=== PATIENT | female | born 1945 | race Two or more races ===

== ENCOUNTER 2017-04-29 12:39 | Inpatient (IN) | payer OTHER ==
[~2017-04-29] VITALS: Ht 162.6 cm; Wt 59.0 kg
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
[2017-04-29 14:36] VITALS: BP 121/57
[2017-04-29] MEDS ORDERED: METH5TAB70 PO (15:46)
[2017-04-29] MEDS ORDERED: ASPI-605 PO (15:46)
[2017-04-29] MEDS ORDERED: AMLO5TAB4 PO (15:46)
[2017-04-29] MEDS ORDERED: CARV6.25 PO (15:46)
[2017-04-29] MEDS ORDERED: DOCU-170 PO (15:46)
[2017-04-29] MEDS ORDERED: LISI-607 PO (15:46)
[2017-04-29] MEDS ORDERED: MAGN400O4 PO (15:46)
[2017-04-29] MEDS ORDERED: HYDR-552 PO (15:46)
[2017-04-29] MEDS ORDERED: NITR0.4T SL (15:46)
[2017-04-29] MEDS ORDERED: ACET650T10 PO (15:46)
[2017-04-29 16:00] VITALS: BP 126/76
[2017-04-29] MEDS ORDERED: MAG HYDROX/AL HYDROX/SIMETH 30 ML UDC PO PRN (16:00)
[2017-04-29] MEDS ORDERED: DEXTROSE 50%-WATER 50 ML DISP.SYRIN IV PRN (16:00)
[2017-04-29] MEDS ORDERED: Z GUARD REMEDY 2 OZ OINT TP PRN (16:00)
[2017-04-29] MEDS ORDERED: ZOLPIDEM TARTRATE 5 MG TABLET PO PRN (16:00)
[2017-04-29] MEDS ORDERED: NITROGLYCERIN 0.4 MG/TAB BOTTLE SL PRN (16:00)
[2017-04-29] MEDS ORDERED: INSULIN REGULAR, HUMAN 100 UNIT/ML 3 ML VIAL SQ PRN (16:00)
[2017-04-29] MEDS ORDERED: ACETAMINOPHEN 325 MG TABLET PO PRN (16:00)
[2017-04-29] MEDS ORDERED: HYDROCODONE/APAP 5/325MG 1 EACH TABLET PO PRN (16:00)
[2017-04-29] MEDS ORDERED: *INSULIN REGULAR(HUMULIN R)HUM 100 UNIT/ML VIAL SQ PRN (16:00)
[2017-04-29] MEDS ORDERED: ONDANSETRON HCL/PF 4 MG/2 ML VIAL IVP PRN (16:00)
[2017-04-29] MEDS ORDERED: MAGNESIUM HYDROXIDE 30 ML UDC PO PRN ×2 (16:00)
[2017-04-29] MEDS: IV NS 0.9% 1,000 ML IV PRN (16:19)
[2017-04-29] MEDS: LISINOPRIL (5MG) 5 MG TABLET PO SCH (16:29)
[2017-04-29] MEDS: DOCUSATE SODIUM 100 MG CAPSULE PO SCH (16:29)
[2017-04-29] MEDS: METHIMAZOLE (5MG) 5 MG TABLET PO SCH (16:29)
[2017-04-29] MEDS ORDERED: POLYVINYL ALCOHOL 15 ML BOTTLE EACHEYE PRN (16:30)
[2017-04-29] MEDS: ENOXAPARIN SODIUM 30 MG/0.3 ML DISP.SYRIN SQ SCH (16:30)
[2017-04-29] MEDS ORDERED: MENTHOL/CETYLPYRD (CEPACOL) 1 LOZ LOZENGE PO PRN (16:30)
[2017-04-29] MEDS ORDERED: BLOOD SUGAR DIAGNOSTIC 1 EACH STRIP IN SCH (17:30)
[2017-04-29] MEDS ORDERED: HYDROCODONE/APAP 5/325MG 1 EACH TABLET PO SCH (18:00)
--- NOTE | 2017-04-29 18:45 | NUR ---
MS/RN - Notes Pt fed dinner, and ate 100%. No significant change in pt's condition. No acute distress.
[2017-04-29 20:00] VITALS: BP 147/60
[2017-04-29] MEDS: CARVEDILOL 3.125 MG TABLET PO SCH (21:00)
[2017-04-29] MEDS: SIMVASTATIN 20 MG TABLET PO SCH (21:23)
--- NOTE | 2017-04-29 21:24 | NUR ---
MS-1/STONE SAWYER PT UNWILLING TO TAKE PO MEDS AT THIS TIME.
[2017-04-30 04:00] VITALS: BP_SYST 147; BP_DIAS 43; BP_DIAS 73
[2017-04-30] MEDS: IV NS 0.9% 1,000 ML IV PRN ×2 (04:06→21:01)
--- NOTE | 2017-04-30 06:46 | NUR ---
MS-1/CLIENT REPORTING ASSOCIATE PT REFUSING BLOOD DRAW AT THIS TIME. WILL ENDORSE TO AM SHIFT.
[2017-04-30 08:00] VITALS: BP 150/83
[2017-04-30] MEDS ORDERED: DOCUSATE SODIUM 100 MG CAPSULE PO SCH (09:00)
[2017-04-30] MEDS: PANTOPRAZOLE 40 MG VIAL IV SCH (09:06)
[2017-04-30] MEDS: METHIMAZOLE (5MG) 5 MG TABLET PO SCH ×2 (09:07→16:53)
[2017-04-30] MEDS: ASPIRIN 81 MG TAB.CHEW PO SCH (09:07)
[2017-04-30] MEDS: LISINOPRIL (5MG) 5 MG TABLET PO SCH ×2 (09:07→16:53)
[2017-04-30] MEDS: DOCUSATE SODIUM 100 MG CAPSULE PO SCH ×2 (09:07→16:53)
[2017-04-30] MEDS: CARVEDILOL 3.125 MG TABLET PO SCH ×2 (09:08→21:00)
[2017-04-30] MEDS: AMLODIPINE BESYLATE 5 MG TABLET PO SCH (09:15)
--- NOTE | 2017-04-30 10:04 | NUR ---
WOUND CARE CONSULT: PT PRESENTS WITH DRY ESCHAR TO RT GREAT TOE AND INTACT DEEP TISSUE INJURY (BROWN) TO RT HEEL, PRESENT ON ADMISSION. RT LOWER EXTREMITY SEVERELY CONTRACTED, MAKING OFFLOADING DIFFICULT. SCARRING NOTED TO RT LATERAL FOOT AND SACRAL AREAS. PT ON ISOFLEX LOW AIRLOSS BED. ALL SKIN PROTECTION MEASURES IN PLACE AND DISCUSSED WITH NURSING STAFF. WILL SEE PRN. Silvia Summers IN AGREEMENT WITH PLAN OF CARE. Addendum: 04/30/17 at 1007 by HIEN GUNDERSON WNDNU Amended: Links added.
[2017-04-30 12:03] LABS: ALBUMIN 2.9 g/dL (3.4-5.0); BASOPHILS % (AUTO) 0.2 % (0.0-2.0); BILIRUBIN,DIRECT 0.1 mg/dL (0.0-0.2); BILIRUBIN,TOTAL 0.3 mg/dL (0.2-1.0); EOSINOPHILS # (AUTO) 0.1 /CMM (0.0-0.7); EOSINOPHILS % (AUTO) 1.2 % (0.0-6.0); HEMATOCRIT 39 % (33-45); HEMOGLOBIN 12.7 g/dL (11.5-14.8); LYMPHOCYTES # (AUTO) 1.5 /CMM (0.8-4.8); LYMPHOCYTES % (AUTO) 12.5 % (20.0-44.0); MAGNESIUM 1.7 mg/dL (1.8-2.4); MEAN CORPUSCULAR HEMOGLOBIN 25 PG (26.0-33.0); MEAN CORPUSCULAR HGB CONC 32 g/dl (31.0-36.0); MEAN CORPUSCULAR VOLUME 76 fL (82-100); MONOCYTES # (AUTO) 0.8 /CMM (0.1-1.30); MONOCYTES % (AUTO) 6.7 % (2.0-12.0); NEUTROPHILS # (AUTO) 9.8 /CMM (1.8-8.9); NEUTROPHILS % (AUTO) 79.4 % (43.0-81.0); PHOSPHORUS 2.7 mg/dL (2.5-4.9); PLATELET COUNT (AUTO) 318 /CMM (150-450); RDW COEFFICIENT OF VARIATION 13.7 (11.5-15.0); RED BLOOD CELL COUNT(AUTO) 5.13 MIL/uL (4.0-5.2); TOTAL PROTEIN, SERUM 7.2 g/dL (6.4-8.2); WHITE BLOOD COUNT (AUTO) 12.4 K/uL (4.3-11.0)
[2017-04-30 12:11] LABS: INR 0.98 (0.87-1.13); PROTHROMBIN TIME 10.2 SECS (9.5-12.7)
[2017-04-30 12:14] LABS: CREATINE KINASE MB 6.1 ng/mL (0-3.6); RETICULOCYTE COUNT 0.9 % (0.6-2.5); THYROID STIMULATING HORMONE 0.008 uIU/mL (0.358-3.74)
[2017-04-30] MEDS: Magnesium 1GM/D5W 100ML PREMIX 100 ML IV SCH ×2 (15:39→16:53)
[2017-04-30 16:00] VITALS: BP 140/63
[2017-04-30] MEDS: ENOXAPARIN SODIUM 30 MG/0.3 ML DISP.SYRIN SQ SCH (16:54)
[2017-04-30 17:57] LABS: APPEARANCE,URINE SL CLOUDY (CLEAR); BILIRUBIN,URINE NEGATIVE (NEGATIVE); BLOOD, URINE 2+ Ery/uL (NEGATIVE); COLOR,URINE YELLOW (YELLOW); KETONES,URINE NEGATIVE (NEGATIVE); LEUKOCYTE ESTERASE ,URINE 3+ (NEGATIVE); NITRITE, URINE NEGATIVE (NEGATIVE); PROTEIN,URINE NEGATIVE (NEGATIVE); UGLUCOSE NEGATIVE (NEGATIVE); UROBILINOGEN,URINE 0.2 EU/dL (0.2)
[2017-04-30 18:16] LABS: BACTERIA,URINE Many /HPF (None Seen); SQUAMOUS EPITHELIAL CELL,UR Few /HPF (None Seen); WBC,URINE TOO NUMEROUS TO COUN /HPF (0-3)
[2017-04-30] MEDS: SIMVASTATIN 20 MG TABLET PO SCH (21:05)
[2017-05-01 04:00] VITALS: BP 113/58
--- NOTE | 2017-05-01 07:18 | NUR ---
RN INITIAL NOTES: REC'D PT AWAKE ON BED, NOT IN ANY DISTRESS, NON VERBAL. ON ROOM AIR, NO SOB NOTED. HAS RFA G22 PL PATENT & INTACT W/ NO S/SX OF INFECTION/INFILTRATION NOTED W/ NS 75 CC/HR INFUSING WELL. PROVIDED COMFORT & SAFETY MEASURES. BED KEPT LOW & IN LOCKED POS. CALL LIGHT PLACED W/IN REACH. WILL CONTINUE TO MONITOR & ATTEND PT NEEDS.
[2017-05-01 08:00] VITALS: BP 121/54
[2017-05-01] MEDS: PANTOPRAZOLE 40 MG VIAL IV SCH (09:36)
[2017-05-01] MEDS: AMLODIPINE BESYLATE 5 MG TABLET PO SCH (09:36)
[2017-05-01] MEDS: DOCUSATE SODIUM 100 MG CAPSULE PO SCH ×2 (09:36→17:40)
[2017-05-01] MEDS: ASPIRIN 81 MG TAB.CHEW PO SCH (09:37)
[2017-05-01] MEDS: CARVEDILOL 3.125 MG TABLET PO SCH ×2 (09:37→22:22)
[2017-05-01] MEDS: METHIMAZOLE (5MG) 5 MG TABLET PO SCH ×2 (09:37→17:40)
[2017-05-01] MEDS: LISINOPRIL (5MG) 5 MG TABLET PO SCH ×2 (09:37→17:00)
[2017-05-01 11:09] LABS: BASOPHILS # (AUTO) 0.1 /CMM (0.0-0.2); BASOPHILS % (AUTO) 0.8 % (0.0-2.0); EOSINOPHILS # (AUTO) 0.6 /CMM (0.0-0.7); EOSINOPHILS % (AUTO) 5.6 % (0.0-6.0); HEMATOCRIT 38 % (33-45); HEMOGLOBIN 12.3 g/dL (11.5-14.8); LYMPHOCYTES # (AUTO) 3.8 /CMM (0.8-4.8); LYMPHOCYTES % (AUTO) 37.9 % (20.0-44.0); MEAN CORPUSCULAR HEMOGLOBIN 25 PG (26.0-33.0); MEAN CORPUSCULAR HGB CONC 32 g/dl (31.0-36.0); MEAN CORPUSCULAR VOLUME 77 fL (82-100); MONOCYTES # (AUTO) 0.8 /CMM (0.1-1.30); MONOCYTES % (AUTO) 8.4 % (2.0-12.0); NEUTROPHILS # (AUTO) 4.7 /CMM (1.8-8.9); NEUTROPHILS % (AUTO) 47.3 % (43.0-81.0); PLATELET COUNT (AUTO) 296 /CMM (150-450); RED BLOOD CELL COUNT(AUTO) 4.99 MIL/uL (4.0-5.2)
[2017-05-01 11:34] LABS: CALCIUM, SERUM 9.1 mg/dL (8.5-10.1); CARBON DIOXIDE 25 mmol/L (21-32); CHLORIDE 108 mmol/L (98-107); CREATININE 0.6 mg/dL (0.6-1.3); GLUCOSE 113 mg/dL (74-106); PHOSPHORUS 3.5 mg/dL (2.5-4.9); POTASSIUM 3.7 mmol/L (3.5-5.1); SODIUM SERUM 141 mmol/L (136-145); UREA NITROGEN, BLOOD 10 mg/dL (7-18)
[2017-05-01] MEDS: IV NS 0.9% 1,000 ML IV PRN (14:40)
[2017-05-01 16:00] VITALS: BP 107/68
[2017-05-01] MEDS: ENOXAPARIN SODIUM 30 MG/0.3 ML DISP.SYRIN SQ SCH (17:42)
--- NOTE | 2017-05-01 18:36 | NUR ---
RN CLOSING NOTES: NO ACUTE CHANGES NOTED W/IN SHIFT. PT TOLERATED ROOM AIR, NO SOB NOTED. RFA G22 PL KEPT PATENT & INTACT W/ NO S/SX OF INFECTION/INFILTRATION NOTED W/ NS 75 CC/HR INFUSING WELL. KEPT WELL RESTED. NEEDS ATTENDED. BED KEPT LOW & IN LOCKED POS. CALL LIGHT PLACED W/IN REACH. WILL ENDORSE TO PM RN FOR DA.
--- NOTE | 2017-05-01 19:30 | NUR ---
MS RN INITIAL NOTE RECEIVED PT SITTING UP IN BED. A/O X1 AND NONVERBAL. BREATHING REGULAR, EVEN AND UNLABORED ON ROOM AIR. IV RFA CLEAN, PATENT WITH FLUIDS INFUSING. HOB ELEVATED. CALL LIGHT WITHIN REACH. WILL CONTINUE TO MONITOR.
[2017-05-01] MEDS: SIMVASTATIN 20 MG TABLET PO SCH (22:21)
[2017-05-02 04:00] VITALS: BP 149/93
[2017-05-02] MEDS: IV NS 0.9% 1,000 ML IV PRN (04:05)
--- NOTE | 2017-05-02 07:05 | NUR ---
MS RN CLOSING NOTE PT REMAINED STABLE DURING SHIFT. NO ACUTE DISTRESS NOTED. REPOSITIONED Q2H. HOB ELEVATED. ALL NEEDS ATTENDED TO PROMPTLY. KEPT CLEAN AND DRY. WILL ENDORSE TO NEXT SHIFT FOR CONTINUITY OF CARE.
[2017-05-02 08:00] VITALS: BP 125/66
[2017-05-02] MEDS: CARVEDILOL 3.125 MG TABLET PO SCH ×2 (08:41→23:16)
[2017-05-02] MEDS: PANTOPRAZOLE 40 MG VIAL IV SCH (08:41)
[2017-05-02] MEDS: DOCUSATE SODIUM 100 MG CAPSULE PO SCH (08:41)
[2017-05-02] MEDS: AMLODIPINE BESYLATE 5 MG TABLET PO SCH (08:41)
[2017-05-02] MEDS: METHIMAZOLE (5MG) 5 MG TABLET PO SCH ×2 (08:42→16:50)
[2017-05-02] MEDS: ASPIRIN 81 MG TAB.CHEW PO SCH (08:42)
[2017-05-02] MEDS: LISINOPRIL (5MG) 5 MG TABLET PO SCH ×2 (08:42→16:50)
[2017-05-02 16:00] VITALS: BP 129/60
[2017-05-02] MEDS: ENOXAPARIN SODIUM 30 MG/0.3 ML DISP.SYRIN SQ SCH (16:51)
[2017-05-02] MEDS: DOCUSATE SODIUM LIQ 100 MG/10 ML UDC PO SCH (16:52)
--- NOTE | 2017-05-02 17:15 | NUR ---
MS RN NOTE 0720: Received patient awake, opens eyes but does not follow commands. On room air, tolerated. No any respiratory distress noted. aspiration precaution observed. Kept HOB elevated. RFA PIV intact, IVF infusing as ordered. 1700: No any significant changes. Afebrile at this time. No S/S new infection. On diapers, noted with good UOP, no foul odor. Kept clean, warm and dry. Needs anticipated. Assisted by SALES ENGINEER ACCOUNT MANAGER on feeding, able to eat 100% of her meal trays.
[2017-05-02] MEDS: SIMVASTATIN 20 MG TABLET PO SCH (23:16)
[2017-05-03 04:00] VITALS: BP 90/61
[2017-05-03] MEDS: IV NS 0.9% 1,000 ML IV PRN (04:28)
--- NOTE | 2017-05-03 07:05 | NUR ---
RN INITIAL NOTE PATIENT RECEIVED IN BED RESTING. EASILY AROUSED. PATIENT IS NON-VERBAL, DOES NOT RESPOND. RESPIRATIONS ARE EVEN AND UNLABORED. NO S/S OF RESPIRATORY DISTRESS OR SOB. SATING WELL ON ROOM AIR. SKIN IS WARM AND DRY TO TOUCH. IV SITE FLUSHED, PATENT. SAFETY PRECAUTIONS IMPLEMENTED, BED IN LOCKED, LOW POSITION WITH TWO SIDE RAILS UP. CALL LIGHT AND BELONGINGS WITHIN EASY REACH. WILL CONTINUE TO MONITOR.
[2017-05-03 08:00] VITALS: BP 109/45
[2017-05-03] MEDS: METHIMAZOLE (5MG) 5 MG TABLET PO SCH (08:33)
[2017-05-03] MEDS: PANTOPRAZOLE 40 MG VIAL IV SCH (08:33)
[2017-05-03] MEDS: DOCUSATE SODIUM LIQ 100 MG/10 ML UDC PO SCH (08:33)
[2017-05-03] MEDS: ASPIRIN 81 MG TAB.CHEW PO SCH (08:33)
[2017-05-03] MEDS: CARVEDILOL 3.125 MG TABLET PO SCH (08:34)
[2017-05-03] MEDS: AMLODIPINE BESYLATE 5 MG TABLET PO SCH (08:34)
[2017-05-03 08:35] VITALS: BP 109/45
[2017-05-03] MEDS: LISINOPRIL (5MG) 5 MG TABLET PO SCH (08:35)
--- NOTE | 2017-05-03 15:28 | NUR ---
RN CLOSING NOTE PATIENT DISCHARGED TO [facility]. IV SITE AND ID REMOVED. NO ANSWER AT [facility] TO GIVE REPORT. CALLED GUY IN CASE MANAGEMENT AND SHE CONFIRMED ITS OKAY TO SEND PATIENT WITHOUT CALLING IN REPORT. PATIENT TRANSFERRED VIA AMBULANCE.
== END 2017-05-03 15:19 | DRG 917 ==
LOC: ER 12:40 → EDBD 12:40 → MEDSG1 13:27
PROVIDERS: ADMIT Internal Medicine; ATTEND Internal Medicine
DX: T59.811A Toxic effect of smoke, accidental (unintentional), initial encounter (principal); J96.01 Acute respiratory failure with hypoxia; G93.41 Metabolic encephalopathy; R53.2 Functional quadriplegia; I69.354 Hemiplegia and hemiparesis following cerebral infarction affecting left non-dominant side; E05.90 Thyrotoxicosis, unspecified without thyrotoxic crisis or storm; E11.9 Type 2 diabetes mellitus without complications; E78.5 Hyperlipidemia, unspecified; F03.90 Unspecified dementia, unspecified severity, without behavioral disturbance, psychotic disturbance, mood disturbance, and anxiety; I10 Essential (primary) hypertension; I25.10 Atherosclerotic heart disease of native coronary artery without angina pectoris; Y92.129 Unspecified place in nursing home as the place of occurrence of the external cause
CPT/HCPCS: 36415; 71010-TC; 80048-TC; 80061-TC; 80076-TC; 81000-TC; 82150-TC; 82272-TC; 82553-TC; 82746; 83540-TC; 83690-TC; 83735-TC; 84100-TC; 84443-TC; 85025-TC; 85045-TC; 85652-TC; 85730-TC; 87040-TC; 87070-TC; 87081-TC; 87086-TC; 87186-TC; 93307-TC; A4606; C9113; J1650; J1815; J3475; J7030; Z7610